=== PATIENT | female | born 1975 | race Caucasian/White ===

== ENCOUNTER → 2016-11-06 | Outpatient (CLI) | payer OTHER ==
--- NOTE | 2016-11-06 14:53 | US ---
Ultrasound Pelvis Complete (Transabdominal and Endovaginal) Including Duplex/Doppler Imaging History: R10.2, pelvic and perineal pain. Technique: Transabdominal and endovaginal ultrasound images were obtained. Endovaginal images obtain ed for better evaluation of the adnexa. Duplex/Doppler imaging of adnexa. Findings: Uterus is surgically absent. Right ovary measures 3.5 x 2.2 x 1.7 cm. Left ovary measures 3 x 2.3 x 1.9 cm. Left ovarian complex c ystic lesion measuring 1.8 x 1.4 x 1.2 cm with internal echoes. No significant free fluid in the pel vis. Color Doppler flow to both ovaries without torsion. Impression: 1. Prior hysterectomy. 2. Normal right ovary. 3. Complex left ovarian 1.8 x 1.4 x 1.2 cm cyst, which may represent a hemorrhagic cyst among other e tiologies. Consider follow-up ultrasound imaging in 8 to 12 weeks. 4. No ovarian torsion.
== END ==
LOC: BRMIMAGING 13:47
PROVIDERS: ATTEND Midwife
DX: N83.202 Unspecified ovarian cyst, left side (principal)
CPT/HCPCS: 76856-PO

== ENCOUNTER → 2017-04-10 | Outpatient (CLI) | payer OTHER | LOC: FIMAGING 15:35 | PROVIDERS: ATTEND Internal Medicine | DX: Z12.31 Encounter for screening mammogram for malignant neoplasm of breast (principal) | CPT/HCPCS: G0202 ==

== ENCOUNTER → 2018-04-11 | Outpatient (CLI) | payer OTHER | LOC: FIMAGING 14:52 | PROVIDERS: ATTEND Obstetrics & Gynecology | DX: Z12.31 Encounter for screening mammogram for malignant neoplasm of breast (principal) ==

== ENCOUNTER → 2018-11-27 | Outpatient (CLI) | payer OTHER | LOC: BMCIMAGING 14:34 | PROVIDERS: ATTEND Physician Assistant | DX: S89.92XA Unspecified injury of left lower leg, initial encounter (principal); M22.2X2 Patellofemoral disorders, left knee ==